=== PATIENT | male | born 1995 | race Caucasian/White ===

== ENCOUNTER 2017-07-05 02:41 | Emergency (ER) | payer OTHER ==
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
== END 2017-07-05 03:20 | disposition home or self-care (01) ==
LOC: MW.ED 02:41
DX: S09.90XA Unspecified injury of head, initial encounter (principal); S16.1XXA Strain of muscle, fascia and tendon at neck level, initial encounter; V43.52XA Car driver injured in collision with other type car in traffic accident, initial encounter
CPT/HCPCS: 70450; 70450-26; 72125; 72125-26; 99282; 99283-25

== ENCOUNTER 2017-07-08 21:58 | Emergency (ER) | payer OTHER ==
[2017-07-08] MEDS ORDERED: Sodium Chloride 0.9% 1,000 ML IV ONE (22:10)
[2017-07-08] MEDS ORDERED: Ondansetron 4 MG/2 ML SDV IVPUSH ONE (22:10)
[2017-07-08] MEDS ORDERED: LORazepam 2 MG/ML SDV IVPUSH ONE (22:10)
[2017-07-08] MEDS ORDERED: Ketorolac 30 MG/ML SDV IVPUSH ONE (22:10)
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
[2017-07-08] MEDS ORDERED: Acetaminophen/oxyCODONE 325-5 MG Tab PO ONE (23:27)
== END 2017-07-09 00:25 | disposition home or self-care (01) ==
LOC: MW.ED 21:58
DX: S16.1XXA Strain of muscle, fascia and tendon at neck level, initial encounter (principal); S09.90XA Unspecified injury of head, initial encounter; V89.2XXA Person injured in unspecified motor-vehicle accident, traffic, initial encounter; Y92.410 Unspecified street and highway as the place of occurrence of the external cause
CPT/HCPCS: 96361; 96374; 96375; 99283; A9270; J1885; J2060; J2360; J2405; J7040; 99282